=== PATIENT | male | born 1990 | race Caucasian/White ===

== ENCOUNTER → 2019-09-04 18:23 | Outpatient (CLI) | payer OTHER, SELFPAY ==
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
== END ==
PROVIDERS: Referring Provider Physician Assistant; Visit Provider Physician Assistant
DX: S69.91XA Unspecified injury of right wrist, hand and finger(s), initial encounter (principal); M79.641 Pain in right hand; X58.XXXA Exposure to other specified factors, initial encounter
CPT/HCPCS: 73110; 73130

== ENCOUNTER → 2020-01-21 10:08 | Outpatient (CLI) | payer OTHER, SELFPAY ==
[2020-01-21 12:32] LABS: Urine N gonorrhoeae NOT DETECTED
[2020-01-21 14:05] LABS: Urine Chlamydia NOT DETECTED
== END ==
PROVIDERS: Visit Provider Physician Assistant
DX: R36.1 Hematospermia (principal)
CPT/HCPCS: 87086; 87491; 87591

== ENCOUNTER → 2020-02-05 10:39 | Outpatient (CLI) | payer OTHER, SELFPAY ==
--- NOTE | 2020-02-05 | DI.US.S_ITS ---
PROCEDURE: US SCROTUM INDICATIONS: TESTICULAR PAIN TECHNIQUE: Real-time scanning was performed of the scrotum and testicles, with image documentation. Color and pulse Doppler interrogation was performed of both testicles. COMPARISON: None. FINDINGS: Right: Testicle is normal in size at 2.1 x 3.1 x 4.5 cm, and homogenous in echotexture. Epididymis is normal in overall size and morphology. No hydrocele or varicoceles. Overlying scrotal skin is normal in thickness. Several punctate microcalcifications noted. Left: Testicle is normal in size at 2.0 x 3.0 x 4.8 cm, and homogeneous in echotexture. Epididymis is normal in overall size and morphology. No hydrocele or varicoceles. Overlying scrotal skin is normal in thickness. Several punctate microcalcifications noted. Doppler: Color and pulse Doppler demonstrate normal and symmetric arterial flow in both testicles. IMPRESSION: Normal examination, source of pain is not identified. Dictated by: Tony Porter M.D. on 02/05/2020 at 13:16 Approved by: Tony Porter M.D. on 02/05/2020 at 13:21
== END ==
PROVIDERS: Referring Provider Physician Assistant; Visit Provider Physician Assistant
DX: N50.819 Testicular pain, unspecified (principal)
CPT/HCPCS: 76870

== ENCOUNTER 2020-06-08 19:48 | Emergency (ER) | payer OTHER, SELFPAY ==
--- NOTE | 2020-06-08 19:55 | DI.RAD.S_ITS ---
PROCEDURE: XR WRIST LT MIN 3V INDICATIONS: wrist injury TECHNIQUE: 4 views of the wrist were acquired. COMPARISON: [facility], CR, XR WRIST RT MIN 3V, 09/04/2019, 18:23. FINDINGS: Bones: No fractures or dislocations. No suspicious bony lesions. There is incidentally noted negative ulnar variance. Scaphoid view: The scaphoid is intact. Soft tissues: No suspicious soft tissue calcifications. IMPRESSION: No acute radiographic findings. If pain persists, followup imaging in 5-7 days is recommended to exclude occult fracture. Dictated by: Manju Rosa M.D. on 06/08/2020 at 20:12 Approved by: Manju Rosa M.D. on 06/08/2020 at 20:14
[2020-06-08 19:57] VITALS: BP 159/98; PULSE 80; RESP 17; TEMP 36.7; O2SAT 98; BMI 29.6
--- NOTE | 2020-06-08 20:07 | ED.GENADULT ---
HPI - General Adult General Chief complaint: Extremity Injury, Upper Stated complaint: left wrist injury Time Seen by Provider: 06/08/20 19:56 Source: patient Mode of arrival: Ambulatory Limitations: no limitations Related Data Home Medications Medication Instructions Recorded Confirmed albuterol sulfate 90 mcg/actuation INHALATION 09/04/19 06/06/20 aerosol inhaler multivitamin 1 tab PO DAILY 03/08/20 06/06/20 Previous Rx's Medication Instructions Recorded escitalopram oxalate 20 mg tablet 30 mg PO DAILY #45 tab 03/08/20 Allergies Allergy/AdvReac Type Severity Reaction Status Date / Time morphine AdvReac Intermediate Nausea/vomitting Verified 06/06/20 10:27 - sister has issue. Patient History Medical History (Updated 06/06/20 @ 10:33 by Joo Huff MD) Blood in semen PTSD (post-traumatic stress disorder) Right hand pain Social History Smoking Status: Never smoker Smoking Status: Never smoker Substance Use Type: does not use Exam Initial Vital Signs Initial Vital Signs: Vital Signs Temperature 98.0 F 06/08/20 19:57 Pulse Rate 80 06/08/20 19:57 Respiratory Rate 17 06/08/20 19:57 Blood Pressure 159/98 H 06/08/20 19:57 Pulse Oximetry 98 06/08/20 19:57 Course Orders Ordered: ED Orders 06/08/20 19:55 XR wrist LT min 3V Stat Vital Signs Vital signs: Vital Signs - 8 hr 06/08/20 19:57 Temperature 98.0 F Pulse Rate 80 Respiratory Rate 17 Blood Pressure 159/98 H Pulse Oximetry 98 Discharge Plan Departure Prescriptions: No Action albuterol sulfate 90 mcg/actuation HFA aerosol inhaler INHALATION RF: 0 multivitamin Tablet 1 tab PO DAILY RF: 0 escitalopram oxalate 20 mg tablet 30 mg PO DAILY Qty: 45 RF: 3
--- NOTE | 2020-06-08 20:07 | ED.GENADULT ---
HPI - General Adult General Chief complaint: Extremity Injury, Upper Stated complaint: left wrist injury Time Seen by Provider: 06/08/20 19:56 Source: patient Mode of arrival: Ambulatory Limitations: no limitations History of Present Illness HPI narrative: Otherwise healthy 30-year-old male here for evaluation of left wrist injury. Patient states he was working on his home when he was trying to remove some boards from around a door and he fell backwards. He states that he did not land on his left wrist but he injured his left wrist because as he was falling he was holding on to a hammer and jerked his wrist. Has had pain since the event which occurred shortly prior to arrival. Took some anti-inflammatories prior to arrival. Related Data Home Medications Medication Instructions Recorded Confirmed albuterol sulfate 90 mcg/actuation INHALATION 09/04/19 06/06/20 aerosol inhaler multivitamin 1 tab PO DAILY 03/08/20 06/06/20 Previous Rx's Medication Instructions Recorded escitalopram oxalate 20 mg tablet 30 mg PO DAILY #45 tab 03/08/20 Allergies Allergy/AdvReac Type Severity Reaction Status Date / Time morphine AdvReac Intermediate Nausea/vomitting Verified 06/06/20 10:27 - sister has issue. Review of Systems Constitutional Constitutional: Denies fever(s) Cardiovascular Cardiovascular: Denies chest pain and Denies dyspnea Respiratory Respiratory: Denies dyspnea Gastrointestinal Gastrointestinal: Denies abdominal pain Musculoskeletal Musculoskeletal: Denies tingling Comments: Left wrist pain Integumentary/Breasts Skin/Breast: Denies lesions and Denies rash Neurologic Neurologic: Denies tingling Hematologic/Lymphatic Hematologic/Lymphatic: Denies easy bleeding and Denies easy bruising Allergic/Immunologic Allergic/Immunologic: Denies urticaria Patient History Medical History Blood in semen PTSD (post-traumatic stress disorder) Right hand pain Social History Smoking Status: Never smoker Smoking Status: Never smoker Substance Use Type: does not use Exam Initial Vital Signs Initial Vital Signs: Vital Signs Temperature 98.0 F 06/08/20 19:57 Pulse Rate 80 06/08/20 19:57 Respiratory Rate 17 06/08/20 19:57 Blood Pressure 159/98 H 06/08/20 19:57 Pulse Oximetry 98 06/08/20 19:57 Const General: cooperative, healthy appearing and comfortable Cardio Pulses: radial pulses present on the left Skin Lesions: no lesions Rashes: no rashes Neuro Sensory Exam: no sensory deficits noted Extrem Other: Left shoulder left elbow unremarkable. Left forearm unremarkable. Patient can pronate and supinate without problems on the left. Has some pain with flexion extension of the wrist. Has pain over the ulnar styloid. No snuffbox pain. Hand and fingers unremarkable. Psych Appearance: grossly normal and well kempt Course Orders Ordered: ED Orders 06/08/20 19:55 XR wrist LT min 3V Stat Vital Signs Vital signs: Vital Signs - 8 hr 06/08/20 19:57 Temperature 98.0 F Pulse Rate 80 Respiratory Rate 17 Blood Pressure 159/98 H Pulse Oximetry 98 Medical Decision Making Imaging Data Extremity x-ray #1: Radiologist's Impression: [address] [id number] ReportSigned Patient: Ron Johnson [facility]#: [id number]: 1990Acct:[id number]/Sex: 30 / MDate of Service: 06/08/20Loc: EDAccession Number: [id number] Procedure: XR wrist LT min 3V Ordering Provider: Nikko Newman D.O. PROCEDURE: XR WRIST LT MIN 3V INDICATIONS: wrist injury TECHNIQUE: 4 views of the wrist were acquired. COMPARISON: [facility], , XR WRIST RT MIN 3V, 09/04/2019, 18:23. FINDINGS: Bones: No fractures or dislocations. No suspicious bony lesions. There is incidentally noted negative ulnar variance. Scaphoid view: The scaphoid is intact. Soft tissues: No suspicious soft tissue calcifications. IMPRESSION: No acute radiographic findings. If pain persists, followup imaging in 5-7 days is recommended to exclude occult fracture. Dictated by: Manju Rosa M.D. on 06/08/2020 at 20:12 Approved by: Manju Rosa M.D. on 06/08/2020 at 20:14 [facility] Narrative Medical decision making narrative: Patient is neurovascularly intact. No fractures on the x-ray. No indication for immobilization. Will have him continue with anti-inflammatories and ice. He was given return precautions. He expressed understanding and agreement. Discharge Plan Departure Patient Disposition: Home Clinical Impression: Injury of left wrist Instructions: How To Perform RICE (Rest, Ice, Compress, Elevate) Activity Restrictions/Additional Instructions: No fractures on the x-ray. No restrictions on your activity. You can continue with anti-inflammatories and ice. Return to the emergency department for any new or worsening symptoms Prescriptions: No Action albuterol sulfate 90 mcg/actuation HFA aerosol inhaler INHALATION RF: 0 multivitamin Tablet 1 tab PO DAILY RF: 0 escitalopram oxalate 20 mg tablet 30 mg PO DAILY Qty: 45 RF: 3
== END 2020-06-08 20:26 | disposition home or self-care (01) ==
PROVIDERS: Emergency Provider Emergency Medicine
DX: S69.92XA Unspecified injury of left wrist, hand and finger(s), initial encounter (principal); W19.XXXA Unspecified fall, initial encounter
CPT/HCPCS: 73110; 99281; 99283

== ENCOUNTER → 2020-06-26 16:39 | Outpatient (CLI) | payer OTHER, SELFPAY | PROVIDERS: Referring Provider Physician Assistant; Visit Provider Physician Assistant | DX: T14.8XXA Other injury of unspecified body region, initial encounter (principal) | CPT/HCPCS: 87070; 87075; 87077; 87147; 87186; 87205 ==

== ENCOUNTER 2020-08-25 20:05 | Emergency (ER) | payer OTHER, SELFPAY ==
[2020-08-25 20:11] VITALS: BP 156/95; PULSE 73; RESP 14; TEMP 37.4; O2SAT 99; BMI 28.8
--- NOTE | 2020-08-25 20:16 | DI.RAD.S_ITS ---
PROCEDURE: XR TIBIA FUBULA RT 2V INDICATIONS: Pt fell approx 6 ft from platform landing on right leg. TECHNIQUE: 2 views of the tibia and fibula were acquired. COMPARISON: None. FINDINGS: Bones: No fractures or dislocations. No suspicious bony lesions. Soft tissues: No suspicious soft tissue calcifications or masses. IMPRESSION: No acute fracture. No osseous lesion. If symptoms and/or clinical suspicion for pathology persist, further assessment with repeat, or advanced imaging (e.g., CT, MRI, or bone scan) may be helpful for further assessment. Dictated by: Mamie Mccarty M.D. on 08/25/2020 at 21:09 Approved by: Mamie Mccarty M.D. on 08/25/2020 at 21:09
--- NOTE | 2020-08-25 20:16 | DI.RAD.S_ITS ---
PROCEDURE: XR KNEE RT 3V INDICATIONS: Pt fell approx 6 ft from platform landing on right leg. TECHNIQUE: 3 views of the knee were acquired. COMPARISON: None. FINDINGS: Bones: No fractures or dislocations. No suspicious bony lesions. Soft tissues: No joint effusion. No suspicious soft tissue calcifications. IMPRESSION: No acute fracture. No osseous lesion. If symptoms and/or clinical suspicion for pathology persist, further assessment with repeat, or advanced imaging (e.g., CT, MRI, or bone scan) may be helpful for further assessment. Dictated by: Mamie Mccarty M.D. on 08/25/2020 at 20:54 Approved by: Mamie Mccarty M.D. on 08/25/2020 at 20:54
--- NOTE | 2020-08-25 20:53 | ED_ITS ---
HPI - Fall General Chief Complaint: Fall Stated Complaint: Fall from ladder 6ft, knee pain, 3 days ago Time Seen by Provider: 08/25/20 20:32 Source: patient Mode of arrival: Wheelchair Limitations: no limitations History of Present Illness HPI Narrative: Patient is a 30-year-old male who is here for evaluation of right knee injury. He states that 3 days ago he was stepping off of a scaffolding onto a ladder when the ladder slid out from underneath him and he fell approximately 6 ft landing on his right knee. He reports no other injuries from the event. Has been ambulatory since then however has quite a bit discomfort on the inside of his right knee. He has injury to his right knee in the past was told that he potentially would need surgery for that was many years ago. Has not tried anything for symptoms prior to arrival Related Data Home Medications Medication Instructions Recorded Confirmed albuterol sulfate 90 mcg/actuation INHALATION 09/04/19 07/21/20 aerosol inhaler multivitamin 1 tab PO DAILY 03/08/20 07/21/20 Previous Rx's Medication Instructions Recorded escitalopram oxalate 20 mg tablet 20 mg PO DAILY #30 tab 07/21/20 Allergies Allergy/AdvReac Type Severity Reaction Status Date / Time morphine AdvReac Intermediate Nausea/vomitting Verified 08/25/20 20:13 - sister has issue. Review of Systems Constitutional Constitutional: Denies fever(s) and Denies headache(s) ENT Ears, Nose, Mouth, and Throat: Denies headache(s) Musculoskeletal Musculoskeletal: Reports arthralgias, Denies back pain and Denies tingling Integumentary/Breasts Skin/Breast: Denies lesions and Denies rash Neurologic Neurologic: Denies behavioral changes, Denies headache(s) and Denies tingling Psychiatric Psychiatric: Denies behavioral changes Hematologic/Lymphatic On Anticoagulants: No Allergic/Immunologic Allergic/Immunologic: Denies urticaria Patient History Medical History Blood in semen Infected abrasion PTSD (post-traumatic stress disorder) Right hand pain Social History Smoking Status: Never smoker Smoking Status: Never smoker alcohol intake frequency: 0-2 drinks per day Substance Use Type: marijuana Exam Initial Vital Signs Initial Vital Signs: Vital Signs Temperature 99.3 F 08/25/20 20:11 Pulse Rate 73 08/25/20 20:11 Respiratory Rate 14 08/25/20 20:11 Blood Pressure 156/95 H 08/25/20 20:11 Pulse Oximetry 99 08/25/20 20:11 Const General: cooperative and comfortable Limitations: mental status not altered HENMT Head: normal to inspection and normocephalic Skin Lesions: no lesions Rashes: no rashes Neuro General: patient alert and patient awake Cognition: normal cognition Speech: speech normal Extrem General: capillary refill normal Other: Right knee ACL and MCL, PCL, LCL all intact with functional testing patient able to do straight leg raise. No tenderness over the hamstring tendons or over the patellar tendon or quadriceps tendon. Does have tenderness to pal pation over the MCL. Psych Appearance: grossly normal and well kempt Course Orders Ordered: ED Orders 08/25/20 20:16 XR knee RT 3V Stat XR tibia fibula RT 2V Stat Vital Signs Vital signs: Vital Signs - 8 hr 08/25/20 20:11 08/25/20 21:33 Temperature 99.3 F Pulse Rate 73 62 Respiratory Rate 14 17 Blood Pressure 156/95 H 137/86 Pulse Oximetry 99 99 MDM - Fall Imaging Data Extremity x-ray #1: Radiologist's Impression: [address] [id number] ReportSigned Patient: Ron Johnson [facility]#: [id number]: 1990Acct:[id number]/Sex: 30 / MDate of Service: 08/25/20Loc: EDAccession Number: [id number] Procedure: XR knee RT 3V Ordering Provider: Nikko Newman D.O. PROCEDURE: XR KNEE RT 3V INDICATIONS: Pt fell approx 6 ft from platform landing on right leg. TECHNIQUE: 3 views of the knee were acquired. COMPARISON: None. FINDINGS: Bones: No fractures or dislocations. No suspicious bony lesions. Soft tissues: No joint effusion. No suspicious soft tissue calcifications. IMPRESSION: No acute fracture. No osseous lesion. If symptoms and/or clinical suspicion for pathology persist, further assessment with repeat, or advanced imaging (e.g., CT, MRI, or bone scan) may be helpful for further assessment. Dictated by: Mamie Mccarty M.D. on 08/25/2020 at 20:54 Approved by: Mamie Mccarty M.D. on 08/25/2020 at 20:54 Extremity x-ray #2: Radiologist's Impression: [address] [id number] ReportSigned Patient: Ron Johnson SMR#: [id number]: 1990Acct:[id number]/Sex: 30 / MDate of Service: 08/25/20Loc: EDAccession Number: [id number] Procedure: XR tibia fibula RT 2V Ordering Provider: Nikko Newman D.O. PROCEDURE: XR TIBIA FUBULA RT 2V INDICATIONS: Pt fell approx 6 ft from platform landing on right leg. TECHNIQUE: 2 views of the tibia and fibula were acquired. COMPARISON: None. FINDINGS: Bones: No fractures or dislocations. No suspicious bony lesions. Soft tissues: No suspicious soft tissue calcifications or masses. IMPRESSION: No acute fracture. No osseous lesion. If symptoms and/or clinical suspicion for pathology persist, further assessment with repeat, or advanced imaging (e.g., CT, MRI, or bone scan) may be helpful for further assessment. Dictated by: Mamie Mccarty M.D. on 08/25/2020 at 21:09 Approved by: Mamie Mccarty M.D. on 08/25/2020 at 21:09 [facility] Narrative Medical decision making narrative: No fractures on the x-rays, is neurovascularly intact, his ligaments appear to be intact with testing. Does have tenderness over the MCL. There was no other injuries reported from the event by the patient or found on exam. I feel we can hold on further workup for now. Patient was given instructions for conservative treatment. He expressed understanding and agreement. Discharge Plan Departure Patient Disposition: Home Clinical Impression: Acute pain of right knee Instructions: DI for Knee Pain Activity Restrictions/Additional Instructions: There were no fractures on the x-rays. I recommend that you use ice and anti- inflammatories such as Motrin/Naprosyn. Contact her primary provider for follow-up. Prescriptions: No Action albuterol sulfate 90 mcg/actuation HFA aerosol inhaler INHALATION RF: 0 escitalopram oxalate 20 mg tablet 20 mg PO DAILY Qty: 30 RF: 0 multivitamin Tablet 1 tab PO DAILY RF: 0 Stand Alone Forms: Work Release Note
[2020-08-25 21:33] VITALS: BP 137/86; PULSE 62; RESP 17; O2SAT 99
== END 2020-08-25 21:35 | disposition home or self-care (01) ==
PROVIDERS: Emergency Provider Emergency Medicine
DX: M25.561 Pain in right knee (principal); W11.XXXA Fall on and from ladder, initial encounter
CPT/HCPCS: 73562; 73590; 99283

== ENCOUNTER → 2020-11-15 10:19 | Outpatient (CLI) | payer OTHER, SELFPAY ==
--- NOTE | 2020-11-15 10:21 | DI.RAD.S_ITS ---
PROCEDURE: XR RIBS LT MIN 3V W CXR1V INDICATIONS: left lateral chest wall pain near ribs 8-10 TECHNIQUE: 2 views of the left ribs were acquired, along with a single view chest. COMPARISON: None. FINDINGS: Surgical changes and devices: None. Bones and chest wall: No fractures or dislocations. No suspicious bony lesions. Overlying soft tissues appear unremarkable. Lungs and pleura: No pleural effusions or pneumothorax. Lungs appear clear. Mediastinum: Mediastinal contours appear normal. Heart size is normal. IMPRESSION: No obvious displaced left rib fracture. No acute cardiopulmonary pathology. Dictated by: Zeke Callejas M.D. on 11/15/2020 at 11:19 Approved by: Zeke Callejas M.D. on 11/15/2020 at 11:20
== END ==
PROVIDERS: PCP Physician Assistant Medical; Referring Provider Physician Assistant; Visit Provider Physician Assistant
DX: S29.011A Strain of muscle and tendon of front wall of thorax, initial encounter (principal); X58.XXXA Exposure to other specified factors, initial encounter
CPT/HCPCS: 71101

== ENCOUNTER 2021-03-06 07:41 | Emergency (ER) | payer OTHER, SELFPAY ==
[2021-03-06 07:52] VITALS: BP 139/91; PULSE 72; RESP 16; TEMP 36.6; O2SAT 99; BMI 25.4
--- NOTE | 2021-03-06 07:56 | ED.MALEGU ---
HPI - Male Genitourinary General Chief complaint: Urogenital-Male Stated complaint: Growth on genital region-happened overnight Time Seen by Provider: 03/06/21 07:55 Source: patient Mode of arrival: Ambulatory Limitations: no limitations History of Present Illness HPI Narrative: Patient is the 30-year-old male with past medical history depression presenting today for a concerning area on his penis. He says it was not there last evening this morning he woke up and felt like there was a blister. He says the blister has decreased in size. He is in a monogamous relationship. No prior history of STD. No discharge from his penis. He has no concerns for gonorrhea or chlamydia. It is not painful. He denies any excessive masturbating, in fact he says libido is low secondary to antidepressant. He denies any testicular pain or abnormality Related Data Home Medications Medication Instructions Recorded Confirmed albuterol sulfate 90 mcg/actuation INHALATION 09/04/19 12/28/20 aerosol inhaler multivitamin 1 tab PO DAILY 03/08/20 12/28/20 Previous Rx's Medication Instructions Recorded bupropion HCl 150 mg 24 hr tablet, 150 mg PO QAM #90 tab 10/19/20 extended release Allergies Allergy/AdvReac Type Severity Reaction Status Date / Time morphine AdvReac Intermediate Nausea/vomitting Verified 12/28/20 15:28 - sister has issue. Review of Systems Review of Systems Narrative: GENERAL: Denies chills,fever HEENT: Denies throat pain RESPIRATORY: Denies dyspnea, cough, wheezing CARDIOVASCULAR: Denies chest pain, palpitations : See HPI GASTROINTESTINAL: Denies nausea, vomiting MUSCULOSKELETAL: Denies extremity pain, injury SKIN: No rash, no laceration, no pruritus NEUROLOGIC: Denies weakness, dizziness, headache, numbness 8 point review of systems is negative except for those stated above and HPI Patient History Medical History (Updated 03/06/21 @ 08:13 by Rianna Ann DO) Blood in semen Chest wall muscle strain Infected abrasion PTSD (post-traumatic stress disorder) Right hand pain Social History Smoking Status: Never smoker Smoking Status: Never smoker alcohol intake frequency: 0-2 drinks per day Substance Use Type: marijuana Exam Initial Vital Signs Initial Vital Signs: Vital Signs Temperature 97.9 F 03/06/21 07:52 Pulse Rate 72 03/06/21 07:52 Respiratory Rate 16 03/06/21 07:52 Blood Pressure 139/91 H 03/06/21 07:52 Pulse Oximetry 99 03/06/21 07:52 GENERAL: Well-appearing, well-nourished and in no acute distress. CARDIOVASCULAR: peripheral pulses in tact, cap refill <2 sec RESPIRATORY: No respiratory distress, speaks in full sentences without difficulty : Nurse Everett present for exam. Penis is examined there is no penile discharge there is no evidence of blister or vesicle possibly a skin fold may be what he was seeing, he says it is significantly decreased. I do not appreciate anything concerning at this time no masses or swelling, no skin abnormalities EXTREMITIES: Normal range of motion, no clubbing or edema. Neurovascularly intact NEUROLOGICAL: Cranial nerves II through XII grossly intact. Normal gait and speech. SKIN: Warm, dry, no petechiae, no rashes or lesions. Course Vital Signs Vital signs: Vital Signs - 8 hr 03/06/21 07:52 Temperature 97.9 F Pulse Rate 72 Respiratory Rate 16 Blood Pressure 139/91 H Pulse Oximetry 99 MDM - Male Genitourinary MDM Narrative Medical decision making narrative: At this time I do not appreciate swelling or masses. I recommend he continue to monitor and follow up with his primary care provider Discharge Plan Departure Patient Disposition: Home Clinical Impression: Worried well Instructions: DI for Sexual Dysfunction in Men Activity Restrictions/Additional Instructions: At this time I fortunately do not see anything concerning. There is no evidence of any blister or vesicle. I do not have concern for any sexually transmitted disease or abnormality. However please continue to monitor the area to see if it again appears. Please follow-up with her primary care provider in 2-3 day Return to the emergency department for any new or worsening signs Prescriptions: No Action albuterol sulfate 90 mcg/actuation HFA aerosol inhaler INHALATION RF: 0 bupropion HCl 150 mg tablet extended release 24 hr 150 mg PO QAM Qty: 90 RF: 3 multivitamin Tablet 1 tab PO DAILY RF: 0 Referrals: Marjan Ngo [Primary Care Provider] -
--- NOTE | 2021-03-06 08:16 | PC.NURSE ---
RN to room with Dr Ann. Examination of patients penis no visible lesion, deformity, swelling or discoloration.
== END 2021-03-06 08:21 | disposition home or self-care (01) ==
PROVIDERS: Emergency Provider Emergency Medicine; PCP Physician Assistant Medical
DX: S30.822A Blister (nonthermal) of penis, initial encounter (principal)
CPT/HCPCS: 99281

== ENCOUNTER 2025-06-30 10:12 | Emergency (ER) | payer OTHER, SELFPAY ==
[2025-06-30 10:06] VITALS: BP 171/99; PULSE 94; RESP 14; TEMP 36.6; O2SAT 94; BMI 28.1
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
--- OUTSIDE RECORDS SUMMARY | 2025-06-30 10:30 | XMS_ITS | Clinical Summary ---
Author Organization [facility] Address [address] [place] [id number] Care Team Providers Care Film Reader Name Role Phone Unavailable Primary Care Provider Unavailabl e Allergies Active Allergy Reactions Criticality Noted Date Comments Morphine Nausea And Vomiting 03/16/2019 Medications No known medications Social History Tobacco Use Types Packs/Day Years Used Date Smoking Tobacco: Never Smokeless Tobacco: Never Sex and Gender Information Value Date Recorded Sex Assigned at Not on file Legal Sex Male 6:26 PM PDT Gender Identity Not on file Sexual Orientation Not on file Last Filed Vital Signs Vital Sign Reading Time Taken Comments Blood Pressure 155/107 03/16/2019 6:32 PM PDT Pulse 80 03/16/2019 6:32 PM PDT Temperature 37 C (98.6 F) 03/16/2019 6:32 PM PDT Respiratory Rate 16 03/16/2019 6:32 PM PDT Oxygen Saturation 99% 03/16/2019 6:32 PM PDT Inhaled Oxygen Concentration - - Weight 81.6 kg (180 lb) 03/16/2019 6:32 PM PDT Height 172.7 cm (5' 8) 03/16/2019 6:32 PM PDT Body Mass Index 27.37 03/16/2019 6:32 PM PDT Plan of Treatment Not on file Insurance [employer]
[2025-06-30] MEDS: KETOROLAC 30 MG/ML VIAL 15 MG IV (10:31)
[2025-06-30 12:16] VITALS: BP 154/97; PULSE 86; RESP 22; O2SAT 96
== END 2025-06-30 12:28 | disposition home or self-care (01) ==
PROVIDERS: Emergency Provider Emergency Medicine; PCP Physician Assistant Medical
DX: S16.1XXA Strain of muscle, fascia and tendon at neck level, initial encounter (principal); M54.6 Pain in thoracic spine; V89.2XXA Person injured in unspecified motor-vehicle accident, traffic, initial encounter; M54.2 Cervicalgia
CPT/HCPCS: 72125; 96374; 99283; 99284; J1885